=== PATIENT | male | born 1930 | race Caucasian/White ===

== ENCOUNTER 2017-01-31 18:05 | Inpatient (IN) | payer MEDICARE ==
[~2017-01-31] VITALS: Ht 185.4 cm; Wt 84.1 kg
[2017-01-31 19:01] LABS: BASOPHILS 0.1 % (0-2); EOSINOPHILS 1.8 % (0-7); HEMATOCRIT 30.9 % (42.0-54.0); HEMOGLOBIN 9.9 g/dL (13.5-17.5); IMMATURE GRANULOCYTES 0.4 % (0-5); LYMPHOCYTES 10.8 % (15-50); MCH 28.7 pg (26.0-34.0); MCV 89.6 fL (80.0-100.0); MEAN PLATELET VOLUME 9.3 fL (7.4-10.4); MONOCYTES 10.4 % (2-11); NEUTROPHILS 76.5 % (40-80); PLATELET COUNT 199 10x3/uL (130-400); RBC 3.45 10x6/uL (4.20-6.10); RDW 15.1 % (11.5-14.5); WBC 12.3 10x3/uL (4.8-10.8)
[2017-01-31 19:15] LABS: ALBUMIN 2.6 g/dL (3.4-5.0); ANION GAP 10.5 mmol/L (8-16); BILIRUBIN - TOTAL 0.7 mg/dL (0.2-1.3); CALCIUM 8.4 mg/dL (8.5-10.1); CARBON DIOXIDE 27.1 mmol/L (21.0-32.0); CREATININE - SERUM 1.2 mg/dL (0.6-1.3); MAGNESIUM - SERUM 2.3 mg/dL (1.8-2.4); POTASSIUM - SERUM 3.6 mmol/L (3.5-5.1); PROTEIN - SERUM 6.7 g/dL (6.4-8.2)
[2017-01-31 20:23] LABS: APPEARANCE CLEAR (CLEAR); COLOR YELLOW (YELLOW)
[2017-01-31 20:24] LABS: BILIRUBIN NEGATIVE (NEGATIVE); GLUCOSE NEGATIVE (NEGATIVE); KETONE NEGATIVE (NEGATIVE); LEUKOCYTE ESTERASE NEGATIVE (NEGATIVE); NITRITE NEGATIVE (NEGATIVE); PROTEIN NEGATIVE (NEGATIVE); UROBILINOGEN NORMAL (NORMAL)
[2017-01-31 21:13] LABS: INR 1.23 (0.85-1.17); PROTIME 15.4 SECONDS (11.6-15.0)
[2017-01-31 21:24] LABS: PRO BNP 521 pg/mL (0-450)
[2017-01-31 21:25] LABS: TROPONIN-I < 0.017 ng/mL (0.000-0.060)
[2017-02-01] VITALS: BP 123/60
[2017-02-01 04:59] VITALS: BP 123/60; Ht 185.4 cm; Wt 84.1 kg
[2017-02-01] MEDS ORDERED: CYPROHEPTADINE H4 MG PO (06:52)
[2017-02-01] MEDS ORDERED: EXELON1 PATCH .1 TRANSDERM (06:53)
[2017-02-01] MEDS ORDERED: SAW PALMETTO450 MG PO (06:54)
[2017-02-01] MEDS ORDERED: PRESERVISION AR1 CAP PO (06:55)
[2017-02-01] MEDS ORDERED: LIPITOR80 MG PO (06:55)
[2017-02-01] MEDS ORDERED: SINEMET 25-2501 EACH PO (06:56)
[2017-02-01] MEDS ORDERED: TOPROL XL25 MG PO (06:56)
[2017-02-01] MEDS ORDERED: TORADOL10 MG PO (06:57)
[2017-02-01] MEDS ORDERED: HYDROCODONE-APA1 TAB PO (06:59)
--- NOTE | 2017-02-01 08:00 | NUR ---
INTRODUCED MYSELF TO PT PRIMARY RN FOR TODAYS SHIFT. PT IS ALERT AND ORIENTED. RR NONLABORED ON RA. PT HAS A R.FA PIV WITH NS @100ML/HR INFUSING. PT HAS SOME SCABS ON HIS HEAD BUT NO OPEN SORES. PT DENIES ANY CURRENT NEEDS, CL IN REACH. WILL CTM.
[2017-02-01 08:26] VITALS: BP 165/64
--- NOTE | 2017-02-01 09:52 | NUR ---
AT BEDSIDE AND STATES PT DOES STILL TAKE HIS SINEMET. PT HAD REFUSED IT THIS AM AND STATED IT MAKES HIM NAUSEATED HOWEVER STATED THATS A DIFFERENT MED AND SHE WAS ABLE TO HAVE PT TAKE IT.
--- NOTE | 2017-02-01 10:16 | NUR ---
LIGHTER IN ROOM TALKING WITH AND PT ORDERED.
--- NOTE | 2017-02-01 12:39 | NUR ---
PT WANTING HIS PIV REMOVED. DISCONNECTED FROM FLUIDS REQUESTED BUT TALKED PT INTO ALLOWING THE SL PIV TO REMAIN IN PLACE FOR FURTHER USE JUST IN CASE PT AND AGREED. PT C/O GENERALIZED ACHING PAINS REQUESTED AND REC'D PRN NORCO. PT RESTING QUIETLY WITH AT BEDSIDE. DENIES ANY FURTHER NEEDS AT THIS TIME WILL CPOC.
--- NOTE | 2017-02-01 13:40 | NUR ---
PHYSICAL THERAPY IS SIGNING OFF R/T PT REFUSING AND STATING HE DOESNT WANT NOR NEED IT.
--- NOTE | 2017-02-01 15:13 | NUR ---
Patient Name: TODD ANDERSON Admission Status: ER Accout number: [id number] Admission Date: 01-31-2017 : 1930 Admission Diagnosis: Attending: MICHAEL Current LOS: 1 Anticipated DC Date: 02-03-2017 Planned Disposition: Custodial Facility Primary Insurance: [facility] PLANNED EXTERNAL PROVIDER: [facility], MEDICARE REHAB BED Discharge Planning Comments: * Is the patient Alert and Oriented? Yes 0 * How many steps to enter\exit or inside your home? 4 0 * PCP DR. CHRISTINE 0 * Pharmacy [facility] 0 * Preadmission Environment Home with Family 0 * ADLs Partial Dependent 0 * Partial ADLs (Assistance needed) Bathing Medication Management 0 * Equipment Hospital Bed Oxygen - HOME AND PORTABLE Walker 0 * Other Equipment HOME AND PORTABLE OXYGEN [facility] - MEDICAL EQUIPMENT PROVIDER 0 * List name and contact numbers for known caregivers / representatives who currently or will assist patient after discharge: DAVIE HARMON, SPOUSE, 0 * Community resources currently utilized Hospice Home 0 * Please name any agencies selected above. [facility] 0 * Additional services required to return to the preadmission environment? Yes * Can the patient safely return to the preadmission environment? Yes 0 * Has this patient been hospitalized within the prior 30 days at any hospital? No 0 CM MET WITH PT AND SPOUSE IN ROOM TO DISCUSS DISCHARGE PLANNING AND NEEDS. PT REPORTS LIVING AT HOME DEPENDENT UPON SPOUSE FOR MEDICATION MANAGEMENT. PT WAS ON HOME HOSPICE WITH [facility] AND HAS REVOKED HOSPICE SERVICES. ALL MEDICAL EQUIPMENT PROVIDED BY HOSPICE. CM DISCUSSED AVAILABILITY OF HOSPICE, HOME HEALTH, REHAB SERVICES AND MEDICAL EQUIPMENT. PT AND SPOUSE WANT CM TO SEND REHAB REFERRALS TO [facility] CHOICE AND [facility]. PT WANTS REHAB SERVICES AND THEN WILL REMAIN IN THE CARE HOME FOR [employer]. THEY UNDERSTAND MEDICARE DOES NOT PAY FOR [employer] [facility], THEY HAVE NO [employer] [facility] INSURANCE AND DO NOT QUALIFY FOR MEDICAID. PT HAS CANCER BUT WILL NOT RECEIVE TREATMENT FOR THIS. PT DOES NOT WANT HOSPICE AT THIS TIME. CHOICE FOR [facility] AND [facility] SIGNED. IMPORTANT MESSAGE FROM MEDICARE PROVIDED AND EXPLAINED. CM NOTIFIED KIP, CLINICAL LIAISON FOR BOTH FACILITIES, WHO VISITED WITH PT AND SPOUSE. CM FAXED REFERRAL FOR REHAB PLACEMENT TO THE [facility] VIA KIP AT [phone]. CM WAITING ADMISSION DETEMINATION FROM THE [facility] FOR REHAB SERVICES. Books Salesperson: Topher Ash
[2017-02-01 20:00] VITALS: BP 119/56
--- NOTE | 2017-02-01 20:30 | NUR ---
HS MEDS GIVEN, NORCO 1 TAB GIVEN FOR C/O PAIN. RATES PAIN AT A 6 ON PAIN SCALE. BED LOW, CL IN REACH, WILL CONT TO MONITOR.
--- NOTE | 2017-02-01 22:46 | NUR ---
CALL LIGHT IN REACH, WILL CONTINUE WITH PLAN OF CARE.
--- NOTE | 2017-02-02 01:14 | NUR ---
RESTING WITH EYES CLOSED, RESPERATIONS EVEN, NO S/S DISTRESS NOTED.
[2017-02-02 04:59] LABS: BASOPHILS 0.1 % (0-2); EOSINOPHILS 4.1 % (0-7); HEMATOCRIT 27.6 % (42.0-54.0); HEMOGLOBIN 8.7 g/dL (13.5-17.5); IMMATURE GRANULOCYTES 0.3 % (0-5); LYMPHOCYTES 13.6 % (15-50); MCH 28.7 pg (26.0-34.0); MCHC 31.5 g/dL (31.0-37.0); MCV 91.1 fL (80.0-100.0); MONOCYTES 9.6 % (2-11); NEUTROPHILS 72.3 % (40-80); PLATELET COUNT 197 10x3/uL (130-400); RBC 3.03 10x6/uL (4.20-6.10)
[2017-02-02 05:04] LABS: WBC 7.6 10x3/uL (4.8-10.8)
[2017-02-02 05:18] LABS: ALBUMIN 2.2 g/dL (3.4-5.0); ANION GAP 11.4 mmol/L (8-16); BILIRUBIN - TOTAL 0.49 mg/dL (0.2-1.3); CALCIUM 8.4 mg/dL (8.5-10.1); CARBON DIOXIDE 26.5 mmol/L (21.0-32.0); CREATININE - SERUM 1.1 mg/dL (0.6-1.3); POTASSIUM - SERUM 3.9 mmol/L (3.5-5.1); PROTEIN - SERUM 6.1 g/dL (6.4-8.2)
[2017-02-02 08:30] VITALS: BP 142/70
[2017-02-02 11:51] VITALS: BP 122/65
--- NOTE | 2017-02-02 12:30 | NUR ---
PT READY TO GET BACK IN BED. ASSISTED PT WITH MIN. ASSIST INTO BED AND ASSISTED SITTING UP TO EAT LUNCH. FAMILY AT BEDSIDE NO FURTHER NEEDS. WILL CTM.
--- NOTE | 2017-02-02 15:54 | NUR ---
PT RESTING QUIETLY IN BED WITH FAMILY AT BEDSIDE. PT DENIES ANY CURRENT PAIN OR NEEDS. CL IN REACH. WILL CTM.
[2017-02-02 15:59] VITALS: BP 140/69
--- NOTE | 2017-02-02 17:01 | NUR ---
Patient Name: TODD ANDERSON Encounter No: [id number] : 1930 Primary Insurance: [facility] AD[facility] Anticipated DC Date: 02-03-2017 Planned Disposition: Prison Facility External Planned Provider: [facility] MEDICARE REHAB BED DCP follow-up note: CM RECEIVED CALL FROM PT'S SPOUSE WHO REPORTS THAT SHE IS NOT HAPPY WITH [facility] FOR PT'S REHAB AND WANTS REFERRAL SENT TO [facility]. CM NOTIFIED CLINICAL LIAISON, KIP, AT [phone]. CM FAXED REFERRAL WITH UPDATE FROM TODAY TO [facility] AT [phone], ATTENTION NISA ORTIZ. CM WAITING ADMISSION DETERMINATION FROM [facility] FOR DISCHARGE TO REHAB, TOMORROW, 02-03-27. Topher Ash, CASE MANAGEMENT
--- NOTE | 2017-02-02 19:15 | NUR ---
REC'D PATIENT LYING IN BED. NO DISTRESS NOTED. ALERT AND ORIENTED X4. DENIED PAIN AT THIS TIME. DENIED FURTHER NEEDS. INSTRUCTED TO ALL IF NEEDED ANYTHING. BED LOW, LOCKED, CALL LIGHT IN REACH.
[2017-02-02 20:21] VITALS: BP 129/69
--- NOTE | 2017-02-02 23:12 | NUR ---
PT RESTING WELL WITHOUT C/O OR DISTRESS NOTED. CALL LIGHT WITHIN REACH. NO NEEDS VOICED. WILL CONT TO MONITOR.
[2017-02-03 00:25] VITALS: BP 139/61
--- NOTE | 2017-02-03 01:03 | NUR ---
PATIENT IS ASLEEP. NO DISTRESS NOTED. WILL CONT TO MONITOR. BED LOW, LOCKED, CALL LIGHT IN REACH.
[2017-02-03 04:33] VITALS: BP 118/62
[2017-02-03 05:42] LABS: BASOPHILS 0.2 % (0-2); EOSINOPHILS 6.3 % (0-7); HEMATOCRIT 28.1 % (42.0-54.0); HEMOGLOBIN 8.7 g/dL (13.5-17.5); IMMATURE GRANULOCYTES 0.2 % (0-5); LYMPHOCYTES 19.4 % (15-50); MCH 28.2 pg (26.0-34.0); MCV 90.9 fL (80.0-100.0); MEAN PLATELET VOLUME 9.2 fL (7.4-10.4); MONOCYTES 8.5 % (2-11); NEUTROPHILS 65.4 % (40-80); PLATELET COUNT 215 10x3/uL (130-400); RBC 3.09 10x6/uL (4.20-6.10); WBC 6.2 10x3/uL (4.8-10.8)
[2017-02-03 05:44] LABS: ANION GAP 10.8 mmol/L (8-16); CALCIUM 8.4 mg/dL (8.5-10.1); CARBON DIOXIDE 27.2 mmol/L (21.0-32.0); CREATININE - SERUM 1.1 mg/dL (0.6-1.3)
--- NOTE | 2017-02-03 06:39 | NUR ---
PATIENT IS RESTING IN BED. NO DISTRESS NOTED. INSTRUCTED TO CALL IF NEEDED ANYTHING. VERBALIZED UNDERSTANDING BED LOW, LOCKED, CALL LIGHT IN REACH.
--- NOTE | 2017-02-03 07:29 | NUR ---
JACQUELINE MEDRANO- RECEIVED REPORT FROM JUANJOSE. PT IS CURRENTLY LAYING IN BED ON BACK WITH EYES CLOSRED RESTING. DNR PER REPORT. ON ROOM AIR. NO MONITOR. IV SEEN TO LEFT FOREARM THAT IS CURRENTLY SALINE LOCKED. NO NEED AT CURRENT TMIE. WILL CONTINUE TO MONITOR AND CONTINUE WITH PLAN OF CARE.
[2017-02-03 08:00] VITALS: BP 141/74
--- NOTE | 2017-02-03 09:56 | NUR ---
7579 ALEXANDER received a telephone call from Mohan Parker promotions representative. She is planning on admitting the patient today. TC to Med II. No discharge orders at present. Await MD rounds. Advised unit sec to notify nurse a bed is available. ALEXANDER will speak with primary nurse on rounds. ALEXANDER spoke with Elena to provide update.
--- NOTE | 2017-02-03 10:42 | NUR ---
CALLED DR. SEQUEIRA OFFICE TO INFORM HIM THAT PT HAS BEEN ACCEPTED TO [facility] PER MARIO WITH [facility]. GOT AHOLD OF ANSWERING SERVICE AND STAFF STATED THEY WOULD GET AHOLD OF DR. NEWSOME WHO IS SPINNING AND WINDING SUPERVISOR AND HAVE HIM CALL ME. WILL AWAIT CALLBACK AND CONTINUE TO MONITOR.
--- NOTE | 2017-02-03 10:45 | NUR ---
RECEIVED CALLBACK FROM DR. NEWSOME. DR. NEWSOME STATES HE WILL BE ON UNIT IN ABOUT 30 MIN. WILL CONTINUE TO MONITOR.
--- NOTE | 2017-02-03 10:49 | NUR ---
ASIM FARR CAME TO INFORM ME THAT IS REQUESTING PT HAVE INPATIENT HOSPICE NOW. I INFORMED THAT I WILL LET MATTHEW MARTIN KNOW AND ALSO DR. NEWSOME. WILL CONTINUE TO MONITOR.
[2017-02-03 12:00] VITALS: BP 134/72
--- NOTE | 2017-02-03 15:25 | NUR ---
PLACED MEPILEX DRESSING ON PTS BUTTOCK AREA OVER BLANCHABLE REDNESS. TURNED PT ON LEFT SIDE. INSTRUCTED PT AND FAMILY TO HAVE PT TURN Q2-3H ON EACH SIDE TO HELP PREVENT SKIN BREAKDOWN. PT AND FAMILY AGREE. WILL CONTINUE TO MONITOR.
[2017-02-03 16:00] VITALS: BP 129/69
--- NOTE | 2017-02-03 16:07 | NUR ---
1600- CALLED DR. VO OFFICE (EMAIL ENGINEER FOR DR. CHRISTINE) TO INFORM HIM THAT PT IS NOT QUALIFIED FOR INPATIENT HOSPICE (PER PTS AND MATTHEW MARTIN) AND THAT PT WILL NEED TO BE TRANSFERED TO [facility] WHERE PT HAS BEEN ACCEPTED. 1607- RECEIVED CALLBACK FROM DR. NEWSOME, INFORMED HIM OF THIS. I INFORMED DR. NEWSOME THAT PT WILL NEED D/C ORDERS TOMORROW FOR [facility] (PER MATTHEW MARTIN, THEY WILL ACCEPT PT TOMORROW). DR. NEWSOME STATES OKAY. WILL CONTINUE TO MONITOR.
--- NOTE | 2017-02-03 17:06 | NUR ---
DR Steinberg rounded. Patient's had decided she would like an inpatient hospice consult at this time. Order obtained. Received call from Elena with [facility] at this time. ALEXANDER provided update regarding this request. Advised Elena that I would notify her when inpatient hospice eval was completed. The patient had been on hospice care at home with [facility] prior to admission. CM spoke with his at the bedside. Contact phone numbers [facility]- [phone] and home [phone]. She will be at the bedside. TC to [facility], the GIP provider for [facility]. Received CB from loan documentation specialist nurse, Nayely. [place] nurse, Monique, visited on site. ALEXANDER provided all clinical documentation. She met w/ the patient's and his son. [place] nurse advised she did not feel the patient met GIP criteria at this time. She was to speak with the Hospice MD then follow up with the family. She stated she would also discuss MD decision w/ the family and advise pillowcase sewer of the plan. ALEXANDER received telephone call at 1600 from the primary nurse, Natalia. The has decided to proceed with the plan for [facility]. Telephoned Elena from [facility]. The DON has left for the day, she had been present earlier for the admission. They can accept the patient in the AM. He still does not have discharge orders. ALEXANDER spoke w/ primary nurse. She will advise DR Steinberg of hospice decision and advise him that we will need discharge orders in the AM.
--- NOTE | 2017-02-03 17:08 | NUR ---
Primary nurse to fax discharge orders to [phone] in the AM for [facility].
--- NOTE | 2017-02-03 18:08 | NUR ---
PT IS CURRENTLY SITTING UP IN BED WITH EYES OPEN RESTING. GUEST MEMBERS ARE AT BEDSIDE. PT DENIES ANY CURRENT NEED AT THIS TIME. WILL CONTINUE TO MONITOR.
[2017-02-03 20:00] VITALS: BP 124/64
--- NOTE | 2017-02-03 21:01 | NUR ---
PT RESTING IN BED. NONLABORED RESPIRATIONS ON ROOM AIR. NS+20KCL INFUSING TO LFA. MEPILEX TO REAR AND TURNED EVERY 2 HOURS. SEE SHIFT ASSESSMENT. CPOC. CALL LIGHT IN REACH.
[2017-02-04] VITALS: BP 120/66
[2017-02-04 04:00] VITALS: BP 128/88
--- NOTE | 2017-02-04 06:00 | NUR ---
PT HAS RESTED THROUGH THE NIGHT. IVF INFUSING. CALL LIGHT IN REACH. CPOC.
--- NOTE | 2017-02-04 07:32 | NUR ---
AM ROUNDING- RECEIVED REPORT FROM DEPUTY SHERIFF CIVIL DIVISION NURSE SHAWNA. PT IS CURRENTLY LAYING IN BED ON BACK WITH EYES OPEN WATCHING TV. PT DENIES ANY CURRENT NEED. DNR PER REPORT. ON ROOM AIR. NO MONITOR. IV SEEN TO LEFT FOREARM WITH NS WITH 20K+ RUNNING AT 75CC. BED IS LOW, SIDE RAILS ARE UP X2 AND CALL LIGHT IS IN REACH. NO NEED AT CURRENT TIME. WILL CONTINUE TO MONITOR AND CONTINUE WITH PLAN OF CARE.
[2017-02-04 08:00] VITALS: BP 132/63
--- NOTE | 2017-02-04 09:24 | NUR ---
SPOKE WITH KIP, CLINICAL LIASON FOR [facility], INFORMED HER OF D/C ORDER. FAXED DISCHARGE TO [phone]. SHE WILL CALL BACK WITH A TIME TO CALL AMBULANCE FOR TRANSPORT.
--- NOTE | 2017-02-04 10:23 | NUR ---
D/C INSTRUCTIONS EXPLAINED TO PT. PT STATES FOR TO SIGN D/C PAPERWORK HOWEVER IS UNAVAILABLE AT THIS TIME. IV REMOVED TO LEFT FOREARM WITH CATH TIP INTACT. COVERED SITE WITH 2X2 GAUZE PADS AND SECURED WITH TAPE. TOLERATED WELL. PT IS ON ROOM AIR. BROTHER IS AT BEDSIDE. AWAITING EMS TO ARRIVE. CALLED AND INFORMED HER OF PT BEING TRANSFERRED. WILL CONTINUE TO MONITOR.
--- NOTE | 2017-02-04 10:44 | NUR ---
EMS HERE NOW GETTING PT. PT D/C VIA STRETCHER WITH EMS.
--- NOTE | 2017-02-05 10:26 | NUR ---
Late Entry 02/04/17 1045 Patient discharged to a skilled bed at [facility] via ambulance. Primary nurse spoke with patient's to advise of transfer.
== END 2017-02-04 10:00 | DRG 194 ==
LOC: D.ER 18:05 → D.M2 21:36
PROVIDERS: Family Medicine; Nurse Practitioner Family; ADMIT Family Medicine
DX: J18.9 Pneumonia, unspecified organism (principal); C34.90 Malignant neoplasm of unspecified part of unspecified bronchus or lung; C79.9 Secondary malignant neoplasm of unspecified site; G20 Parkinson's disease